=== PATIENT | female | born 2000 | race Caucasian/White ===

== ENCOUNTER 2019-08-14 13:52 | Emergency (ER) | payer OTHER ==
[2019-08-14 13:56] VITALS: BP 123/57; PULSE 82; TEMP 98; BMI 22.6
[2019-08-14] MEDS ORDERED: DIPHTH,PERTUSS(ACELL),TET 0.5 ML DISP.SYRIN IM ONE ×2 (14:25→15:02)
--- NOTE | 2019-08-14 14:31 | PDOC ---
History of Present Illness - General Chief Complaint: Injury Stated Complaint: CUT RT FOOT Time Seen by Provider: 08/14/19 14:05 History Source: Patient Exam Limitations: Clinical Condition - History of Present Illness Initial Comments: 08/14/19 14:33 Patient with no significant past medical history presented with complaint of laceration to bottom of right great toe status post accidentally hitting toe on a metal piece 1 hour ago. Patient reported laceration to bilateral toe and does not recall last tetanus vaccine. Denies numbness or tingling sensation of swelling to area. Denies any other symptoms Occurred: reports: just prior to arrival Pain Location: reports: lower extremity (right great toe) Method of Injury: Yes: other (hit toe on metal piece) Loss of Consciousness: no loss of consciousness Past History - Past Medical History Allergies/Adverse Reactions: Allergies Allergy/AdvReac Type Severity Reaction Status Date / Time No Known Allergies Allergy Verified 08/14/19 13:56 Home Medications: Ambulatory Orders Cephalexin Monohydrate [Keflex -] 500 mg PO BID 7 Days #14 capsule 08/14/19 COPD: No - Psycho Social/Smoking Cessation Hx Smoking History: Never smoked Review of Systems - Review of Systems Able to Perform ROS?: Yes Is the patient limited Yoruba proficient: No Constitutional: No: Chills, Fever, Malaise HEENTM: No: Symptoms Reported Respiratory: No: Symptoms reported Cardiac (ROS): No: Symptoms Reported ABD/GI: No: Symptoms Reported Musculoskeletal: Yes: Symptoms Reported, See HPI, Muscle Pain (right great toe pain) Integumentary: Yes: Symptoms Reported, Other (laceration to bottom of right great toe) Neurological: No: Symptoms reported, Numbness, Paresthesia, Tingling, Weakness All Other Systems: Reviewed and Negative *Physical Exam - Vital Signs Last Vital Signs Temp Pulse Resp BP Pulse Ox 98 F 82 18 123/57 L 100 08/14/19 13:53 08/14/19 13:53 08/14/19 13:53 08/14/19 13:53 08/14/19 13:53 - Physical Exam Comments: 08/14/19 14:28 GENERAL: Well developed, well nourished. Awake and alert. No acute distress. PULMONARY: No evidence of respiratory distress. MUSCULOSKELETAL : mild tenderness over proximal phalanx of right great toe with a laceration area on plantar side. No bony deformities SKIN: Warm and dry. Normal capillary refill. No rashes. 1 cm superficial complete skin avulsion laceration to plantar aspect of proximal phalange of right great toe. No active bleeding. NEUROLOGICAL: Alert, awake, appropriate. No motor deficits in the lower extremities. Gait is normal without ataxia. PSYCHIATRIC: Cooperative. Good eye contact. Appropriate mood and affect. General Appearance: Yes: Nourished, Appropriately Dressed. No: Apparent Distress Medical Decision Making - Medical Decision Making 08/14/19 14:33 Patient with no significant past medical history presented with complaint of laceration to bottom of right great toe status post accidentally hitting toe on a metal piece 1 hour ago. Patient reported laceration to bilateral toe and does not recall last tetanus vaccine. Denies numbness or tingling sensation of swelling to area. Denies any other symptoms Exam significant for 1 cm superficial complete skin avulsion laceration to plantar aspect of distal phalange of right great toe with no active bleeding. Wound does not require suturing due to superficial and complete skin avulsion. Wound cleaned with Betadine and irrigated with normal saline. Bacitracin applied to wound and wound covered with adhesive bandage. Patient stable for discharge on Keflex antibiotic for infection prophylaxis with advised to apply bacitracin to wound twice a day until healed with PCP follow-up as needed. Tetanus vaccine ordered to be given prior to discharge Discharge - Discharge Information Problems reviewed: Yes Clinical Impression/Diagnosis: Laceration of great toe of right foot Qualifiers: Encounter type: initial encounter Damage to nail status: without damage Foreign body presence: without foreign body Qualified Code(s): S91.111A - Laceration without foreign body of right great toe without damage to nail, initial encounter Condition: Stable Disposition: HOME - Admission No - Additional Discharge Information Prescriptions: Cephalexin Monohydrate [Keflex -] 500 mg PO BID 7 Days #14 capsule - Follow up/Referral - Patient Discharge Instructions Patient Printed Discharge Instructions: DI for Avulsion Laceration (Not Requiring Sutures), DI for Minor Laceration Additional Instructions: Keep wound clean and dry for the next 24 hours. Apply bacitracin to wound twice a day until healed. Take prescribed antibiotics and finish it. Take Motrin as needed for pain. Follow-up with primary care as needed - Post Discharge Activity
== END 2019-08-14 15:09 | disposition home or self-care (01) ==
LOC: JERFT 13:52
PROC: 3E0234Z Introduction of Serum, Toxoid and Vaccine into Muscle, Percutaneous Approach (ICD-10-PCS; principal; 2019-08-14)
DX: S91.111A Laceration without foreign body of right great toe without damage to nail, initial encounter (principal); W22.8XXA Striking against or struck by other objects, initial encounter; Y93.89 Activity, other specified; Y92.89 Other specified places as the place of occurrence of the external cause; Y99.8 Other external cause status
CPT/HCPCS: 90471; 90715; 99281-25